=== PATIENT | female | born 1955 | race Caucasian/White ===

== ENCOUNTER → 2018-08-02 16:32 | Outpatient (CLI) | payer OTHER, SELFPAY ==
--- NOTE | 2018-08-02 | DI.MG.S_ITS ---
BILATERAL DIGITAL SCREENING MAMMOGRAM 3D/2D WITH CAD WITH AUGMENTATION: 08/02/2018 CLINICAL: Patient presents for routine screening. S/P bilateral augmentation. Comparison is made to exam dated: 07/26/2016 mammogram - [facility]. The tissue of both breasts is heterogeneously dense. This may lower the sensitivity of mammography. Current study was also evaluated with a Computer Aided Detection (CAD) system. Bilateral breast implants are stable. There are benign vascular calcifications in both breasts. No significant masses, calcifications, or other findings are seen in either breast. There has been no significant interval change. IMPRESSION: There is no mammographic evidence of malignancy. A 1 year screening mammogram is recommended. This exam was interpreted at Station ID: [id number]. NOTE: For mammograms, a report in lay terms will be sent to the patient. Approximately 15% of breast malignancies will not be visualized mammographically. In the management of a palpable breast mass, a negative mammogram must not discourage biopsy of a clinically suspicious lesion. Electronically Signed By: Joe damon/[email or web address]:08/03/2018 12:45:23 letter sent: Normal Exam ACR BI-RADS Category 2: Benign Finding(s) 3342F
== END ==
PROVIDERS: PCP Family Medicine; Visit Provider Internal Medicine
DX: Z12.31 Encounter for screening mammogram for malignant neoplasm of breast (principal); Z98.82 Breast implant status
CPT/HCPCS: 77063; 77067

== ENCOUNTER → 2019-01-08 16:16 | Outpatient (CLI) | payer OTHER, SELFPAY ==
[2019-01-08 17:43] LABS: Cholesterol 220 mg/dL (140-199); HDL Cholesterol 82 mg/dL (40-60); LDL Cholesterol Calculated 118 mg/dL (<100); Triglycerides 99 mg/dL (35-150)
[2019-01-08 17:59] LABS: Free T4, Direct Thyroxine 1.23 ng/dL (0.78-2.19)
[2019-01-08 18:13] LABS: Thyroid Stimulating Hormone 1.01 uIU/mL (0.47-4.68)
[2019-01-10 16:21] LABS: Triiodothyronine T3 Total 64 ng/dL (76-181)
== END ==
PROVIDERS: PCP Internal Medicine; Visit Provider Internal Medicine
DX: E03.9 Hypothyroidism, unspecified (principal); E78.5 Hyperlipidemia, unspecified
CPT/HCPCS: 36415; 80061; 84439; 84443; 84480

== ENCOUNTER → 2019-04-23 17:09 | Outpatient (CLI) | payer OTHER, SELFPAY ==
[2019-04-23 17:53] LABS: Alanine Aminotransferase 25 IU/L (<35); Albumin 4.8 g/dL (3.5-5.0); Albumin Globulin Ratio 1.6 (1.0-2.8); Alkaline Phosphatase 58 U/L (38-126); Aspartate Aminotransferase 27 IU/L (14-36); BUN Creatinine Ratio 32.5 (6-22); Bilirubin Total 0.6 mg/dL (0.2-1.3); Blood Urea Nitrogen 26 mg/dL (7-17); Carbon Dioxide 30 mmol/L (22-32); Chloride 103 mmol/L (98-107); Cholesterol 209 mg/dL (140-199); Estimated Glomerular Filt Rate > 60.0 mL/min (>60); Glucose 99 mg/dL (80-110); HDL Cholesterol 92 mg/dL (40-60); HEMOLYSIS 19 (0-50); LDL Cholesterol Calculated 100 mg/dL (<100); Potassium 4.8 mmol/L (3.4-5.1); Sodium 140 mmol/L (137-145); Total Protein 7.8 g/dL (6.3-8.2); Triglycerides 85 mg/dL (35-150)
[2019-04-23 18:10] LABS: Free T4, Direct Thyroxine 1.54 ng/dL (0.78-2.19)
[2019-04-25 14:39] LABS: Triiodothyronine T3 Total 64 ng/dL (76-181)
== END ==
PROVIDERS: PCP Internal Medicine; Referring Provider Internal Medicine; Visit Provider Internal Medicine
DX: E03.9 Hypothyroidism, unspecified (principal); E78.5 Hyperlipidemia, unspecified
CPT/HCPCS: 36415; 80053; 80061; 84439; 84443; 84480

== ENCOUNTER → 2019-07-13 14:29 | Outpatient (CLI) | payer OTHER, SELFPAY ==
[2019-07-13 17:22] LABS: Free T4, Direct Thyroxine 1.21 ng/dL (0.78-2.19)
[2019-07-13 17:36] LABS: Thyroid Stimulating Hormone < 0.02 uIU/mL (0.47-4.68)
[2019-07-14 08:40] LABS: Triiodothyronine T3 Total 224 ng/dL (71-180)
== END ==
PROVIDERS: PCP Internal Medicine; Referring Provider Internal Medicine; Visit Provider Internal Medicine
DX: E03.9 Hypothyroidism, unspecified (principal)
CPT/HCPCS: 36415; 84439; 84443; 84480

== ENCOUNTER → 2019-10-03 12:17 | Outpatient (CLI) | payer OTHER, SELFPAY ==
[2019-10-03 13:35] LABS: Free T4, Direct Thyroxine 1.55 ng/dL (0.78-2.19)
[2019-10-04 07:09] LABS: Triiodothyronine T3 Total 98 ng/dL (71-180)
== END ==
PROVIDERS: PCP Internal Medicine; Referring Provider Internal Medicine; Visit Provider Internal Medicine
DX: E03.9 Hypothyroidism, unspecified (principal)
CPT/HCPCS: 36415; 84439; 84443; 84480

== ENCOUNTER → 2020-02-08 08:30 | Outpatient (CLI) | payer OTHER, SELFPAY ==
[2020-02-08 09:20] LABS: Alanine Aminotransferase 23 IU/L (<35); Albumin 4.3 g/dL (3.5-5.0); Albumin Globulin Ratio 1.7 (1.0-2.8); Alkaline Phosphatase 62 U/L (38-126); Aspartate Aminotransferase 23 IU/L (14-36); BUN Creatinine Ratio 37.5 (6-22); Bilirubin Total 0.4 mg/dL (0.2-1.3); Blood Urea Nitrogen 33 mg/dL (7-17); Calcium 9.7 mg/dL (8.4-10.2); Carbon Dioxide 27 mmol/L (22-32); Chloride 110 mmol/L (98-107); Estimated Glomerular Filt Rate > 60.0 mL/min (>60); Globulin 2.5 g/dL (1.7-4.1); Glucose 122 mg/dL (80-110); HEMOLYSIS < 15 (0-50); Potassium 4.4 mmol/L (3.4-5.1); Sodium 141 mmol/L (137-145); Total Protein 6.8 g/dL (6.3-8.2)
[2020-02-08 09:34] LABS: Free T3, Triiodothyronine Free 2.66 pg/mL (2.77-5.27)
[2020-02-08 09:48] LABS: Thyroid Stimulating Hormone 0.169 uIU/mL (0.47-4.68)
[2020-02-09 19:10] LABS: Anti Thyroglobulin Antibody <1.0 IU/mL (0.0-0.9); Thyroid Peroxidase Antibodies 11 IU/mL (0-34)
== END ==
PROVIDERS: PCP Naturopath; Referring Provider Naturopath; Visit Provider Naturopath
DX: Z00.00 Encounter for general adult medical examination without abnormal findings (principal); E03.9 Hypothyroidism, unspecified
CPT/HCPCS: 36415; 80053; 84443; 84481; 84482; 86376; 86800

== ENCOUNTER → 2020-11-03 14:43 | Outpatient (CLI) | payer OTHER, SELFPAY ==
--- NOTE | 2020-11-03 14:45 | DI.RAD.S_ITS ---
PROCEDURE: XR FOOT LT MIN 3V INDICATIONS: left foot pain TECHNIQUE: 3 views of the foot were acquired. COMPARISON: None. FINDINGS: Bones: Oblique fracture through mid to distal shaft of 5th metatarsal bone is seen with minimal medial displacement at fracture site. No other fracture or dislocation is seen. No suspicious bony lesions. Soft tissues: No tibiotalar joint effusion. Achilles tendon appears normal. IMPRESSION: Minimally displaced oblique fracture through mid to distal 5th metatarsal shaft. Dictated by: Austin Bahena M.D. on 11/03/2020 at 15:27 Approved by: Austin Bahena M.D. on 11/03/2020 at 15:27
== END ==
PROVIDERS: PCP Naturopath; Referring Provider Nurse Practitioner; Visit Provider Nurse Practitioner
DX: M79.672 Pain in left foot (principal); S92.352A Displaced fracture of fifth metatarsal bone, left foot, initial encounter for closed fracture; X58.XXXA Exposure to other specified factors, initial encounter
CPT/HCPCS: 73630